=== PATIENT | female | born 2000 | race Hispanic/Latino ===

== ENCOUNTER 2023-03-26 12:59 | Emergency (ER) | payer OTHER ==
[2023-03-26 14:13] LABS: ALT (SGPT) 87 U/L (8-55); AST (SGOT) 51 U/L (5-34); Albumin 3.7 g/dL (3.5-5.0); Alkaline Phosphatase 101 U/L (40-110); Anion Gap 14 mmol/L (10-20); BUN (Urea Nitrogen) 4 mg/dL (7.0-18.7); Bilirubin, Total 0.5 mg/dL (0.2-1.2); Calc. Creatinine Clearance 0 mL/min (70-130); Calcium 9.3 mg/dL (7.8-10.44); Carbon Dioxide 24 mmol/L (22-29); Chloride 101 mmol/L (98-107); Estimated GFR 127; Globulin 3.4 g/dL (2.4-3.5); Glucose 100 mg/dL (70-105); Potassium 2.7 mmol/L (3.5-5.1); Protein, Total 7.1 g/dL (6.0-8.3); Sodium 136 mmol/L (136-145)
[2023-03-26 14:19] LABS: #Monocytes 1.5 10x3/uL (0.0-1.1); #Neutrophils 9.8 10x3/uL (1.5-8.4); %Basophils 0.3 % (0.0-2.0); %Eosinophils 0.1 % (0.0-6.0); %Monocytes 11.8 % (0.0-10.0); %Neutrophils 78.2 % (40.0-75.0); Hematocrit 31.1 % (34.9-44.5); Hemoglobin 10.7 g/dL (12.0-15.5); Mean Corpuscular HGB CONC 34.4 g/dL (32.0-36.0); Mean Corpuscular Hemoglobin 30.2 pg (27.0-33.0); Mean Corpuscular Volume 87.9 fl (81.6-98.3); Mean Platelet Volume 9.7 fl (7.4-10.4); Platelet Count 323 10x3/uL (150-450); RBC Distribution Width 12.6 % (11.5-14.5); Red Blood Cell (RBC) Count 3.54 10x6/uL (3.90-5.03); White Blood Cell (WBC) Count 12.6 10x3/uL (3.5-10.5)
[2023-03-26] MEDS ORDERED: Acetaminophen 500 MG TAB ONE (15:05)
[2023-03-26 15:07] LABS: SARS-CoV-2 NAA Rapid Test Not Detected (NotDetected)
[2023-03-26 15:18] LABS: Bilirubin Neg (Negative); Blood, Urine 150 (Negative); Clarity Clear (Clear); Glucose, Urine (Dipstick) Normal (Negative); Ketone, Urine Negative (Negative); Leukocyte 500 (Negative); Nitrite Negative (Negative); Protein, Urine (Dipstick) Negative (Neg-Trace); Urobilinogen Normal mg/dL (Less than 2)
[2023-03-26 15:42] LABS: Bacteria/HPF 2+ HPF (None Seen); CAUTI Indications for Culture Pregnancy; Squamous Epithelial 0-3 HPF (0-3); WBC/HPF 0-3 HPF (0-3)
[2023-03-26 15:43] LABS: Urine Culture Reflex Yes Yes
[2023-03-26] MEDS ORDERED: Potassium Chloride 20 MEQ TAB ONE (16:01)
[2023-03-26] MEDS ORDERED: cefTRIAXone (ROCEPHIN) 1 GM VIAL ONE (16:01)
[2023-03-26 16:10] LABS: Magnesium 1.9 mg/dL (1.6-2.6)
== END 2023-03-26 17:38 | disposition home or self-care (01) ==
LOC: CSHERS 12:59
DX: N39.0 Urinary tract infection, site not specified (principal); E87.6 Hypokalemia; R11.2 Nausea with vomiting, unspecified; Z33.1 Pregnant state, incidental
CPT/HCPCS: 36415; 76856; 80053; 81001; 83605; 83735; 84702; 85025; 87077; 87086; 87186; 96374; J0696

== ENCOUNTER 2023-06-25 07:52 | Outpatient (CLI) | payer OTHER | END 2023-06-25 07:53 | disposition home or self-care (01) | LOC: CSHULT 07:52 | PROVIDERS: ATTEND Nurse Practitioner Women's Health | DX: Z34.82 Encounter for supervision of other normal pregnancy, second trimester (principal); Z3A.19 19 weeks gestation of pregnancy | CPT/HCPCS: 76805 ==

== ENCOUNTER 2023-10-18 16:12 | Day surgery (SDC) | payer OTHER ==
[2023-10-18 16:52] VITALS: BMI 29.6
[2023-10-18 17:19] LABS: SARS-CoV-2 E Target Positive; SARS-CoV-2 N2 Target Positive; SARS-CoV-2 NAA Rapid Test DETECTED (NotDetected); SARS-CoV-2 RdRP gene Positive
[2023-10-18] MEDS ORDERED: hydrALAZINE 20 MG/ML VIAL SLOW IVP PRN (17:42)
[2023-10-18] MEDS ORDERED: Lactated Ringer's 1,000 ML IV SCH (17:45)
[2023-10-18 18:12] LABS: Bilirubin Neg (Negative); Blood, Urine 50 (Negative); Clarity Clear (Clear); Glucose, Urine (Dipstick) Normal (Negative); Ketone, Urine Negative (Negative); Leukocyte Negative (Negative); Nitrite Negative (Negative); Protein, Urine (Dipstick) 15 mg/dl (Neg-Trace); Specific Gravity, Urine 1.005 (1.005-1.030); Urobilinogen Normal mg/dL (Less than 2)
[2023-10-18 18:21] LABS: Bacteria/HPF Rare-Few HPF (None Seen); CAUTI Indications for Culture Pregnancy; RBC/HPF 0-3 HPF (0-3); Squamous Epithelial 0-3 HPF (0-3); WBC/HPF 0-3 HPF (0-3)
[2023-10-18 18:22] LABS: Urine Culture Reflex Yes Yes
== END 2023-10-18 19:25 | disposition home or self-care (01) ==
LOC: CSHLD/OP 16:12
PROVIDERS: ATTEND Family Medicine
DX: O99.891 Other specified diseases and conditions complicating pregnancy (principal); M54.50 Low back pain, unspecified; R53.81 Other malaise; O23.03 Infections of kidney in pregnancy, third trimester; O23.43 Unspecified infection of urinary tract in pregnancy, third trimester; O98.513 Other viral diseases complicating pregnancy, third trimester; U07.1 COVID-19; Z79.899 Other long term (current) drug therapy; Z3A.36 36 weeks gestation of pregnancy
CPT/HCPCS: 81001; 87077; 87086; 96360; 99284; U0002

== ENCOUNTER 2023-11-11 19:30 | Inpatient (IN) | payer OTHER ==
[2023-11-12] MEDS ORDERED: Promethazine HCl 25 MG/ML VIAL IM PRN (21:05)
[2023-11-12] MEDS ORDERED: hydrALAZINE 20 MG/ML VIAL SLOW IVP PRN (21:05)
[2023-11-12] MEDS ORDERED: Ondansetron PF 4 MG/2 ML Vial IVP PRN (21:05)
[2023-11-12] MEDS ORDERED: Lidocaine 1% (PF) 30 ML VIAL SC PRN (21:05)
[2023-11-12] MEDS ORDERED: Carboprost 250 MCG/ML AMP IM PRN (21:05)
[2023-11-12] MEDS ORDERED: Acetaminophen 500 MG TAB PO PRN (21:05)
[2023-11-12] MEDS ORDERED: HYDROcodone/Acetaminophen 5/325 mg Tablet PO PRN (21:05)
[2023-11-12] MEDS ORDERED: Misoprostol 200 MCG TAB PR PRN (21:05)
[2023-11-12] MEDS ORDERED: Methylergonovine 0.2 MG/ML VIAL IM PRN (21:05)
[2023-11-12] MEDS ORDERED: fentaNYL 50 mcg/mL 1 mL Vial SLOW IVP PRN (21:05)
[2023-11-12] MEDS ORDERED: Tranexamic Acid 1,000 MG/10 ML VIAL IVP PRN (21:05)
[2023-11-12] MEDS ORDERED: Diphenoxylate HCl/Atropine Tablet PO PRN (21:05)
[2023-11-12] MEDS ORDERED: Oxytocin 30 units/NS 500 ML 500 ML IV SCH ×2 (21:15)
[2023-11-12 21:30] VITALS: BMI 30.1
[2023-11-12 22:16] LABS: Hematocrit 32.7 % (34.9-44.5); Hemoglobin 11.1 g/dL (12.0-15.5); Mean Corpuscular HGB CONC 33.9 g/dL (32.0-36.0); Mean Corpuscular Hemoglobin 30.4 pg (27.0-33.0); Mean Corpuscular Volume 89.6 fL (81.6-98.3); Mean Platelet Volume 10.8 fL (7.4-10.4); Platelet Count 222 10x3/uL (150-450); RBC Distribution Width 12.7 % (11.5-14.5); Red Blood Cell (RBC) Count 3.65 10x6/uL (3.90-5.03); White Blood Cell (WBC) Count 10.1 10x3/uL (3.5-10.5)
[2023-11-12] MEDS: Misoprostol 100 MCG TAB PO SCH (22:18)
[2023-11-12 22:49] LABS: HBsAg Index 0.18 S/CO (0-0.99); HIV (1/2) Antibody/Antigen Non-Reactive (NonReactive); HIV 1/2 INDEX 0.11 S/CO (<1.00); Hep B Surf Ag - L&D Non-Reactive S/CO (NonReactive)
[2023-11-12 22:51] LABS: Syphilis Antibody Nonreactive (Nonreactive); Syphilis Antibody Index 0.06 S/CO (<1.00 Non-Reactive)
[2023-11-13] MEDS: Lactated Ringer's 1,000 ML IV SCH (04:29)
[2023-11-13] MEDS: Penicillin G Potassium 5 MILL.UNITS in Sodium Chloride 0.9% 100 ML IVPB SCH (04:29)
[2023-11-13] MEDS: Penicillin G 2.5 MILL.units 2.5 MILL.UNITS in Premix 1 BAG IVPB SCH (08:40)
[2023-11-13] MEDS: Oxytocin 30 units/NS 500 ML 500 ML IV SCH (13:25)
[2023-11-13] MEDS: Ibuprofen 800 MG TAB PO PRN (14:06)
[2023-11-13] MEDS ORDERED: Milk Of Magnesia 30 ML UDCUP PO PRN (15:10)
[2023-11-13] MEDS ORDERED: hydrALAZINE 20 MG/ML VIAL SLOW IVP PRN (15:10)
[2023-11-13] MEDS ORDERED: HYDROcodone/Acetaminophen 5/325 mg Tablet PO PRN (15:10)
[2023-11-13] MEDS ORDERED: Ondansetron PF 4 MG/2 ML Vial IVP PRN (15:10)
[2023-11-13] MEDS ORDERED: Bisacodyl 10 MG SUPP PR PRN (15:10)
[2023-11-13] MEDS ORDERED: Lanolin Ointment 7 GM TUBE TOP PRN (15:10)
[2023-11-13] MEDS ORDERED: diphenhydrAMINE 25 MG CAP PO PRN (15:10)
[2023-11-13] MEDS ORDERED: Promethazine HCl 25 MG/ML VIAL IM PRN (15:10)
[2023-11-13] MEDS: Boostrix 0.5 ML (Tdap) VIAL (>/=7 yrs of age) IM ONE (16:49)
[2023-11-13] MEDS: Ferrous Sulfate 325 MG TAB PO SCH (16:50)
[2023-11-13] MEDS: Ibuprofen 800 MG TAB PO SCH (21:49)
[2023-11-13] MEDS: Benzocaine-Menthol 82.5 ML CAN TOP PRN (21:50)
[2023-11-13] MEDS: Docusate 100 MG CAP PO SCH (21:50)
[2023-11-14] MEDS: Prenatal Vitamin 1 TAB PO SCH (09:22)
[2023-11-14 11:03] VITALS: BP 132/78; TEMP 98.3
== END 2023-11-14 17:10 | disposition home or self-care (01) | DRG 807 ==
LOC: CSHLD 11-12 21:01 → CSHPP 11-13 16:00
PROVIDERS: ADMIT Family Medicine; ATTEND Family Medicine
PROC: 10E0XZZ Delivery of Products of Conception, External Approach (ICD-10-PCS; principal; 2023-11-13)
PROC: 10907ZC Drainage of Amniotic Fluid, Therapeutic from Products of Conception, Via Natural or Artificial Opening (ICD-10-PCS; 2023-11-13)
PROC: 3E0P7VZ Introduction of Hormone into Female Reproductive, Via Natural or Artificial Opening (ICD-10-PCS; 2023-11-13)
DX: O99.824 Streptococcus B carrier state complicating childbirth (principal); Z37.0 Single live birth; Z3A.39 39 weeks gestation of pregnancy; O69.81X0 Labor and delivery complicated by cord around neck, without compression, not applicable or unspecified
CPT/HCPCS: 85027; 86780; 86850; 86900; 86901; 87340; 87389; J2540; J2590; J7120